=== PATIENT | female | born 1995 | race Caucasian/White ===

== ENCOUNTER 2017-12-25 17:39 | Emergency (ER) | payer OTHER ==
[2017-12-25 18:42] LABS: BILIRUBIN,URINE NEGATIVE (NEG); CLARITY,URINE CLEAR; COLOR,URINE YELLOW; GLUCOSE,URINE NEGATIVE (NEG); NITRITE,URINE NEGATIVE (NEG); PH,URINE 5.5; PROTEIN,URINE NEGATIVE (NEG-TRACE); UROBILINOGEN,URINE 0.2 mg/dL (0.2 mg/dL)
[2017-12-25 18:42] LABS: URINE HCG POC HCG NEGATIVE (Negative)
[2017-12-25 18:51] LABS: BACTERIA,URINE FEW /HPF (0-FEW); RBC,URINE 0 /HPF (0-2); SQUAMOUS EPITHELIAL CELL,UR OCC /LPF
== END 2017-12-25 19:48 | disposition home or self-care (01) ==
LOC: ER 19:48
DX: R32 Unspecified urinary incontinence (principal); Z87.440 Personal history of urinary (tract) infections
CPT/HCPCS: 81001; 81025; 99285-25